=== PATIENT | male | born 1975 | race African-American/Black ===

== ENCOUNTER 2017-11-29 12:56 | Emergency (ER) | payer MEDICAID ==
[~2017-11-29] VITALS: Ht 170.2 cm; Wt 73.0 kg
[~2017-11-29 12:56] MED LIST: ALBU18HF2 IH; ALBU2.5V13 IH; BISA-81 PO; CIPR-263 PO; DOCU-138 PO; FLONASE; HUMALOG; HYDR25TA PO; LOSA50TA20 PO; METR500T4 PO; MOME13HF IH; MONT10TA21 PO
[2017-11-29] MEDS ORDERED: PEMB100V IV (13:08)
[2017-11-29 16:48] VITALS: BP 125/90
== END 2017-11-29 17:07 | disposition home or self-care (01) ==
LOC: ER 14:00
DX: S50.861A Insect bite (nonvenomous) of right forearm, initial encounter (principal); L03.113 Cellulitis of right upper limb; I10 Essential (primary) hypertension; E11.9 Type 2 diabetes mellitus without complications; J45.909 Unspecified asthma, uncomplicated; E78.00 Pure hypercholesterolemia, unspecified; W57.XXXA Bitten or stung by nonvenomous insect and other nonvenomous arthropods, initial encounter; Y93.89 Activity, other specified; Y92.89 Other specified places as the place of occurrence of the external cause; Y99.8 Other external cause status
CPT/HCPCS: 99283

== ENCOUNTER 2018-09-10 07:09 | Emergency (ER) | payer MEDICAID ==
[~2018-09-10] VITALS: Ht 175.3 cm; Wt 85.0 kg
[~2018-09-10 07:09] MED LIST changes: +METR-218 PO; -METR500T4 PO; +PEMB100V IV
[2018-09-10 07:15] VITALS: BP 159/88
== END 2018-09-10 07:57 | disposition left against medical advice (07) ==
LOC: ER 07:09
DX: Z53.21 Procedure and treatment not carried out due to patient leaving prior to being seen by health care provider (principal)